=== PATIENT | male | born 1995 | race African-American/Black ===

== ENCOUNTER 2018-05-08 11:02 | Emergency (ER) | payer OTHER ==
--- NOTE | 2018-05-08 11:28 | EDPHYS ---
Physician Documentation [facility] Name: Spike Mena Age: 22 yrs Sex: Male : 1995 Arrival Date: 05/08/2018 Time: 11:04 Bed 16 Private MD: None, None ED Physician Derrick Gabreil HPI: 05/08 11:29 This 22 yrs old Black Male presents to ER via Ambulatory with complaints of Leg Pain. snw 11:29 The patient presents with pain, that is acute. The complaints affect the right knee. snw Context: The problem was sustained at an unknown site, resulted from an unknown cause, the patient can fully bear weight, the patient is able to ambulate, Problem is a result from a previous injury: No. Onset: The symptoms/episode began/occurred suddenly, 3 day(s) ago. Modifying factors: The symptoms are alleviated by remaining still, the symptoms are aggravated by weight bearing. Associated signs and symptoms: The patient has no apparent associated signs or symptoms. Severity of symptoms: At their worst the symptoms were very mild, mild. The patient has not experienced similar symptoms in the past. It is unknown whether or not the patient has recently seen a physician. pt states it feels like his knee is going to give out when bearing weight. Historical: - Allergies: 11:10 No Known Allergies; hb - Home Meds: 11:10 Albuterol Inhl [Active]; hb - PMHx: 11:10 Asthma; hb - PSHx: 11:10 None; hb - Immunization history:: Adult Immunizations up to date. - Social history:: Smoking status: Patient/guardian denies using tobacco. - Ebola Screening: : No symptoms or risks identified at this time. ROS: 11:29 Constitutional: Negative for fever, chills, and weight loss, Eyes: Negative for injury, snw pain, redness, and discharge, ENT: Negative for injury, pain, and discharge, Neck: Negative for injury, pain, and swelling, Cardiovascular: Negative for chest pain, palpitations, and edema, Respiratory: Negative for shortness of breath, cough, wheezing, and pleuritic chest pain, Abdomen/GI: Negative for abdominal pain, nausea, vomiting, diarrhea, and constipation, Back: Negative for injury and pain, : Negative for injury, bleeding, discharge, and swelling, Skin: Negative for injury, rash, and discoloration, Neuro: Negative for headache, weakness, numbness, tingling, and seizure. 11:29 MS/extremity: Positive for pain, of the right knee. Exam: 11:27 Constitutional: This is a well developed, well nourished patient who is awake, alert, snw and in no acute distress. Head/Face: Normocephalic, atraumatic. Eyes: Pupils equal round and reactive to light, extra-ocular motions intact. Lids and lashes normal. Conjunctiva and sclera are non-icteric and not injected. Cornea within normal limits. Periorbital areas with no swelling, redness, or edema. ENT: Nares patent. No nasal discharge, no septal abnormalities noted. Tympanic membranes are normal and external auditory canals are clear. Oropharynx with no redness, swelling, or masses, exudates, or evidence of obstruction, uvula midline. Mucous membranes moist. Neck: Trachea midline, no thyromegaly or masses palpated, and no cervical lymphadenopathy. Supple, full range of motion without nuchal rigidity, or vertebral point tenderness. No Meningismus. Chest/axilla: Normal chest wall appearance and motion. Nontender with no deformity. No lesions are appreciated. Cardiovascular: Regular rate and rhythm with a normal S1 and S2. No gallops, murmurs, or rubs. Normal PMI, no JVD. No pulse deficits. Respiratory: Lungs have equal breath sounds bilaterally, clear to auscultation and percussion. No rales, rhonchi or wheezes noted. No increased work of breathing, no retractions or nasal flaring. Abdomen/GI: Soft, non-tender, with normal bowel sounds. No distension or tympany. No guarding or rebound. No evidence of tenderness throughout. Back: No spinal tenderness. No costovertebral tenderness. Full range of motion. Skin: Warm, dry with normal turgor. Normal color with no rashes, no lesions, and no evidence of cellulitis. Neuro: Awake and alert, GCS 15, oriented to person, place, time, and situation. Cranial nerves II-XII grossly intact. Motor strength 5/5 in all extremities. Sensory grossly intact. Cerebellar exam normal. Normal gait. Psych: Awake, alert, with orientation to person, place and time. Behavior, mood, and affect are within normal limits. 11:27 Musculoskeletal/extremity: Extremities: grossly normal except: noted in the right knee: pain. Vital Signs: 11:10 BP 128 / 74; Pulse 90; Resp 16; Temp 99; Pulse Ox 98% on R/A; Weight 82.55 kg; Height 5 hb ft. 11 in. (180.34 cm); Pain 6/10; 11:10 Body Mass Index 25.38 (82.55 kg, 180.34 cm) hb MDM: 11:13 Patient medically screened. snw 11:29 Data reviewed: vital signs, nurses notes. Data interpreted: Pulse oximetry: on room air snw is 98 %. Interpretation: normal. Counseling: I had a detailed discussion with the patient and/or guardian regarding: the historical points, exam findings, and any diagnostic results supporting the discharge/admit diagnosis, the need for outpatient follow up, to return to the emergency department if symptoms worsen or persist or if there are any questions or concerns that arise at home. Special discussion: Based on the history and exam findings, there is no indication for further emergent testing or inpatient evaluation. I discussed with the patient/guardian the need to see the orthopedic surgeon for further evaluation of the symptoms. I discussed with the patient/guardian the need to see the primary care provider for further evaluation of the symptoms. Administered Medications: No medications were administered Disposition: 15:29 Co-signature as Attending Physician, Derrick Gabriel MD I agree with the assessment and maynor plan of care. Disposition: 05/08/18 11:28 Discharged to Home. Impression: Pain in right knee, Asthma. - Condition is Stable. - Discharge Instructions: Knee Pain, Knee - Meniscus Injury, Arthroscopy, Form - Asthma Action Plan, Adult, Asthma Attack Prevention, Adult. - Prescriptions for Diclofenac Sodium 75 mg Oral Tablet Sustained Release - take 1 tablet by ORAL route 2 times per day; 30 tablet. Albuterol Sulfate 90 mcg/actuation - inhale 1-2 puff by INHALATION route every 4-6 hours; 1 Inhaler. - Medication Reconciliation Form, Thank You Letter, Antibiotic Education, Prescription Opioid Use, Work release form form. - Follow up: Private Physician; When: 2 - 3 days; Reason: Recheck today's complaints, Continuance of care, Re-evaluation by your physician. Follow up: Emergency Department; When: As needed; Reason: Worsening of condition. Signatures: Derrick Gabriel MD MD cha Therrien, Shelly, PLUG SHAPER HAND-C PLUG SHAPER HAND-Csnw Bindu Lima, [place] RN ss Vika Lebron RN RN Corrections: (The following items were deleted from the chart) 11:44 11:28 05/08/2018 11:28 Discharged to Home. Impression: Pain in right knee; Asthma. ss Condition is Stable. Discharge Instructions: Knee Pain, Knee - Meniscus Injury, Arthroscopy, Form - Asthma Action Plan, Adult, Asthma Attack Prevention, Adult. Prescriptions for Diclofenac Sodium 75 mg Oral Tablet Sustained Release - take 1 tablet by ORAL route 2 times per day; 30 tablet, Albuterol Sulfate 90 mcg/actuation - inhale 1-2 puff by INHALATION route every 4-6 hours; 1 Inhaler. and Forms are Medication Reconciliation Form, Thank You Letter, Antibiotic Education, Prescription Opioid Use. Follow up: Private Physician; When: 2 - 3 days; Reason: Recheck today's complaints, Continuance of care, Re-evaluation by your physician. Follow up: Emergency Department; When: As needed; Reason: Worsening of condition. snw
--- NOTE | 2018-05-08 11:28 | ER ---
Nurse's Notes [facility] Name: Spike Mena Age: 22 yrs Sex: Male : 1995 Arrival Date: 05/08/2018 Time: 11:04 Bed 16 Private MD: None, None Diagnosis: Pain in right knee;Asthma Presentation: 05/08 11:08 Presenting complaint: Patient states: RIGHT knee pain x 3 days. Denies injury. hb Transition of care: patient was not received from another setting of care. Onset of symptoms was May 05, 2018. Risk Assessment: Do you want to hurt yourself or someone else? Patient reports no desire to harm self or others. Initial Sepsis Screen: Does the patient meet any 2 criteria? No. Patient's initial sepsis screen is negative. Does the patient have a suspected source of infection? No. Patient's initial sepsis screen is negative. Care prior to arrival: None. 11:08 Method Of Arrival: Ambulatory hb 11:08 Acuity: GORGE 4 hb Historical: - Allergies: 11:10 No Known Allergies; hb - Home Meds: 11:10 Albuterol Inhl [Active]; hb - PMHx: 11:10 Asthma; hb - PSHx: 11:10 None; hb - Immunization history:: Adult Immunizations up to date. - Social history:: Smoking status: Patient/guardian denies using tobacco. - Ebola Screening: : No symptoms or risks identified at this time. Vital Signs: 11:10 BP 128 / 74; Pulse 90; Resp 16; Temp 99; Pulse Ox 98% on R/A; Weight 82.55 kg; Height 5 hb ft. 11 in. (180.34 cm); Pain 6/10; 11:10 Body Mass Index 25.38 (82.55 kg, 180.34 cm) hb ED Course: 11:04 Patient arrived in ED. sb2 11:04 None, None is Private Physician. sb2 11:09 Triage completed. hb 11:10 Arm band placed on right wrist. hb 11:13 Kandi Kent FNP-C is PHCP. snw 11:13 Derrick Gabriel MD is Attending Physician. snw 11:18 Antonio Wasserman, [place] is Primary Nurse. mb3 11:43 No provider procedures requiring assistance completed. Patient did not have IV access ss during this emergency room visit. Administered Medications: No medications were administered Outcome: 11:28 Discharge ordered by . janice 11:43 Discharged to home ambulatory, with family. ss :43 Condition: good 11:43 Discharge instructions given to patient, family, Instructed on discharge instructions, follow up and referral plans. medication usage, Demonstrated understanding of instructions, follow-up care, medications, Prescriptions given X 2. 11:44 Patient left the ED. Signatures: Kandi Kent, REPAIRER VENEER SHEET-C REPAIRER VENEER SHEET-Csnw Bindu Lima, RN RN Vika Lebron, RN RN Lydia Weinberg sb2 Antonio Wasserman RN RN mb3
[2018-05-08 11:47] VITALS: BP 128/74; TEMP 99; O2SAT 98
== END 2018-05-08 11:44 | disposition home or self-care (01) ==
LOC: ER 11:02
DX: M25.561 Pain in right knee (principal); J45.909 Unspecified asthma, uncomplicated
CPT/HCPCS: 99282

== ENCOUNTER 2019-05-31 18:36 | Emergency (ER) | payer OTHER, SELFPAY ==
[2019-05-31] MEDS ORDERED: ALBUTEROL 2.5 MG/3 ML NEB SOL ONE (19:11)
[2019-05-31] MEDS ORDERED: IPRATROPIUM BROM 0.5MG/2.5ML ONE (19:11)
--- NOTE | 2019-05-31 19:17 | ER ---
Nurse's Notes [facility] Name: Spike Mena Age: 23 yrs Sex: Male : 1995 Arrival Date: 05/31/2019 Time: 18:37 Bed 27 Private MD: Diagnosis: Asthma Presentation: 05/31 18:42 Presenting complaint: Patient states: Every year this time of year I get real bad la1 allergies and my asthma flares up. Transition of care: patient was not received from another setting of care. Onset of symptoms was May 31, 2019. Risk Assessment: Do you want to hurt yourself or someone else? Patient reports no desire to harm self or others. Initial Sepsis Screen: Does the patient meet any 2 criteria? No. Patient's initial sepsis screen is negative. Does the patient have a suspected source of infection? No. Patient's initial sepsis screen is negative. Care prior to arrival: None. 18:42 Method Of Arrival: Ambulatory la1 18:42 Acuity: GORGE 4 la1 Triage Assessment: 19:07 General: Appears in no apparent distress. comfortable, Behavior is calm, cooperative, cc3 appropriate for age. Pain: Denies pain. Historical: - Allergies: 18:43 No Known Allergies; la1 - PMHx: 18:43 Asthma; la1 - Immunization history:: Adult Immunizations up to date. - Social history:: Smoking status: Patient uses tobacco products, smokes one-half pack cigarettes per day. - Ebola Screening: : No symptoms or risks identified at this time. Screenin:07 Abuse screen: Denies threats or abuse. Denies injuries from another. Nutritional cc3 screening: No deficits noted. Tuberculosis screening: No symptoms or risk factors identified. Fall Risk Ambulatory Aid- None/Bed Rest/Nurse Assist (0 pts). Gait- Normal/Bed Rest/Wheelchair (0 pts) Mental Status- Oriented to own ability (0 pts). Assessment: 19:07 General: Appears in no apparent distress. comfortable, Behavior is calm, cooperative, cc3 appropriate for age. Pain: Denies pain. Neuro: Level of Consciousness is awake, alert, obeys commands, Oriented to person, place, time, situation, Appropriate for age. Cardiovascular: Denies chest pain. Respiratory: Airway is patent Respiratory effort is even, unlabored, Respiratory pattern is regular, symmetrical. GI: Abdomen is flat. : No signs and/or symptoms were reported regarding the genitourinary system. EENT: No signs and/or symptoms were reported regarding the EENT system. Derm: Skin is intact, is healthy with good turgor, Skin is normal, black. Musculoskeletal: Circulation, motion, and sensation intact. Range of motion: intact in all extremities. 19:35 Reassessment: Patient appears in no apparent distress at this time. Patient and/or cc3 family updated on plan of care and expected duration. Pain level reassessed. Patient is alert, oriented x 3, equal unlabored respirations, skin warm/dry/pink. PELTS SKINNER Bhavin discharged the patient home with prescriptions given. No IV cannula in situ. Patient left ER vitally stable and ambulatory with his family. No valuables left in the patient's room. Patient denies pain at this time. Patient states feeling better. Patient states symptoms have improved. Vital Signs: 18:45 Resp 18; Temp 98.2(O); Pulse Ox 99% on R/A; Weight 79.38 kg; Height 5 ft. 11 in. la1 (180.34 cm); 18:46 BP 120 / 72; Pulse 66; la1 18:45 Body Mass Index 24.41 (79.38 kg, 180.34 cm) la1 ED Course: 18:37 Patient arrived in ED. as 18:42 Triage completed. la1 18:45 Arm band placed on right wrist. la1 18:47 Leanna Delcid FNP-C is [facility]. kb 18:47 Derrick Gabriel MD is Attending Physician. kb 19:07 Zaida Sprague is Primary Nurse. cc3 19:07 Patient has correct armband on for positive identification. Bed in low position. Call cc3 light in reach. Side rails up X 1. Pulse ox on. NIBP on. 19:35 No provider procedures requiring assistance completed. Patient did not have IV access cc3 during this emergency room visit. Administered Medications: 19:15 Drug: DuoNeb (3:1) (2.5 mg - 0.5 mg) 3 ml Route: Nebulizer; cc3 19:35 Follow up: Response: No adverse reaction; Marked relief of symptoms cc3 Outcome: 19:16 Discharge ordered by . kb 19:35 Discharged to home ambulatory, with family. cc3 19:35 Condition: stable 19:35 Discharge instructions given to patient, Instructed on discharge instructions, follow up and referral plans. medication usage, Demonstrated understanding of instructions, follow-up care, medications, Prescriptions given X 2. 19:37 Patient left the ED. cc3 Signatures: Leanna Delcid, DIRECTOR EMERGENCY SERVICES-C DIRECTOR EMERGENCY SERVICES-Codie Mazariegos Lee RN RN la1 Zaida Sprague cc3
--- NOTE | 2019-05-31 19:17 | EDPHYS ---
Physician Documentation [facility] Name: Spike Mena Age: 23 yrs Sex: Male : 1995 Arrival Date: 05/31/2019 Time: 18:37 Bed 27 Private MD: ED Physician Derrick Gabriel HPI: 05/31 19:13 This 23 yrs old Black Male presents to ER via Ambulatory with complaints of Asthma kb Exacerbation. 19:13 The patient presents to the emergency department with wheezing, Current therapy: kb albuterol nebs. Onset: The symptoms/episode began/occurred 3 day(s) ago. Modifying factors: The symptoms are alleviated by nothing, the symptoms are aggravated by nothing. Associated signs and symptoms: The patient has no apparent associated signs or symptoms. Severity of symptoms: At their worst the symptoms were moderate in the emergency department the symptoms have improved. The patient has experienced similar episodes in the past. The patient has not recently seen a physician. Pt reports he normally has asthma exacerbations at this time of year and is out of his neb treatment. Historical: - Allergies: 18:43 No Known Allergies; la1 - PMHx: 18:43 Asthma; la1 - Immunization history:: Adult Immunizations up to date. - Social history:: Smoking status: Patient uses tobacco products, smokes one-half pack cigarettes per day. - Ebola Screening: : No symptoms or risks identified at this time. ROS: 19:09 Constitutional: Negative for fever, chills, and weight loss, ENT: Negative for injury, kb pain, and discharge, Neck: Negative for injury, pain, and swelling, Cardiovascular: Negative for chest pain, palpitations, and edema, Abdomen/GI: Negative for abdominal pain, nausea, vomiting, diarrhea, and constipation, Back: Negative for injury and pain, : Negative for injury, bleeding, discharge, and swelling, MS/Extremity: Negative for injury and deformity, Skin: Negative for injury, rash, and discoloration, Neuro: Negative for headache, weakness, numbness, tingling, and seizure. 19:09 Respiratory: Positive for cough, shortness of breath, wheezing. Exam: 19:09 Constitutional: This is a well developed, well nourished patient who is awake, alert, kb and in no acute distress. Head/Face: Normocephalic, atraumatic. ENT: Nares patent. No nasal discharge, no septal abnormalities noted. Tympanic membranes are normal and external auditory canals are clear. Oropharynx with no redness, swelling, or masses, exudates, or evidence of obstruction, uvula midline. Mucous membranes moist. Neck: Trachea midline, no thyromegaly or masses palpated, and no cervical lymphadenopathy. Supple, full range of motion without nuchal rigidity, or vertebral point tenderness. No Meningismus. Chest/axilla: Normal chest wall appearance and motion. Nontender with no deformity. No lesions are appreciated. Cardiovascular: Regular rate and rhythm with a normal S1 and S2. No gallops, murmurs, or rubs. Normal PMI, no JVD. No pulse deficits. Respiratory: Lungs have equal breath sounds bilaterally, clear to auscultation and percussion. No rales, rhonchi or wheezes noted. No increased work of breathing, no retractions or nasal flaring. Abdomen/GI: Soft, non-tender, with normal bowel sounds. No distension or tympany. No guarding or rebound. No evidence of tenderness throughout. Back: No spinal tenderness. No costovertebral tenderness. Full range of motion. Skin: Warm, dry with normal turgor. Normal color with no rashes, no lesions, and no evidence of cellulitis. MS/ Extremity: Pulses equal, no cyanosis. Neurovascular intact. Full, normal range of motion. Neuro: Awake and alert, GCS 15, oriented to person, place, time, and situation. Cranial nerves II-XII grossly intact. Motor strength 5/5 in all extremities. Sensory grossly intact. Cerebellar exam normal. Normal gait. Vital Signs: 18:45 Resp 18; Temp 98.2(O); Pulse Ox 99% on R/A; Weight 79.38 kg; Height 5 ft. 11 in. la1 (180.34 cm); 18:46 BP 120 / 72; Pulse 66; la1 18:45 Body Mass Index 24.41 (79.38 kg, 180.34 cm) la1 MDM: 18:47 Patient medically screened. kb 19:13 Data reviewed: vital signs, nurses notes. Data interpreted: Pulse oximetry: on room air kb is 99 %. Interpretation: normal. 19:16 Counseling: I had a detailed discussion with the patient and/or guardian regarding: the kb historical points, exam findings, and any diagnostic results supporting the discharge/admit diagnosis, the need for outpatient follow up, a family practitioner, to return to the emergency department if symptoms worsen or persist or if there are any questions or concerns that arise at home. Administered Medications: 19:15 Drug: DuoNeb (3:1) (2.5 mg - 0.5 mg) 3 ml Route: Nebulizer; cc3 19:35 Follow up: Response: No adverse reaction; Marked relief of symptoms cc3 Disposition: 06/01 08:23 Co-signature as Attending Physician, Derrick Gabriel MD I agree with the assessment and maynor plan of care. Disposition: 05/31/19 19:16 Discharged to Home. Impression: Asthma. - Condition is Stable. - Discharge Instructions: Asthma, Adult, [id number]. - Prescriptions for Albuterol Sulfate 2.5 mg /3 mL (0.083 %) Inhalation Solution for Nebulization - inhale 1 unit by NEBULIZATION route every 8 hours As needed; 1 box. Albuterol Sulfate 90 mcg/actuation - inhale 1-2 puff by INHALATION route every 4-6 hours; 1 Inhaler. - Medication Reconciliation Form, Thank You Letter, Antibiotic Education, Prescription Opioid Use form. - Follow up: Emergency Department; When: As needed; Reason: Worsening of condition. Follow up: Private Physician; When: 2 - 3 days; Reason: Recheck today's complaints, Continuance of care, Re-evaluation by your physician. Signatures: Leanna Delcid, INSULATION MANAGER-C INSULATION MANAGER-Ckb Derrick Gabriel MD MD cha Attema, Lee, RN RN laZaida Garcia cc3 Corrections: (The following items were deleted from the chart) 05/31 19:37 19:16 05/31/2019 19:16 Discharged to Home. Impression: Asthma. Condition is Stable. cc3 Forms are Medication Reconciliation Form, Thank You Letter, Antibiotic Education, Prescription Opioid Use. Follow up: Emergency Department; When: As needed; Reason: Worsening of condition. Follow up: Private Physician; When: 2 - 3 days; Reason: Recheck today's complaints, Continuance of care, Re-evaluation by your physician. kb
[2019-05-31 19:45] VITALS: BP 120/72
[2019-05-31 19:47] VITALS: TEMP 98.2; O2SAT 99
== END 2019-05-31 19:37 | disposition home or self-care (01) ==
LOC: ER 18:36
DX: J45.901 Unspecified asthma with (acute) exacerbation (principal); F17.210 Nicotine dependence, cigarettes, uncomplicated
CPT/HCPCS: 94640; 99284

== ENCOUNTER 2020-04-19 14:13 | Emergency (ER) | payer SELFPAY ==
--- NOTE | 2020-04-19 15:06 | ER ---
Nurse's Notes [facility] Name: Spike Mena Age: 24 yrs Sex: Male : 1995 Arrival Date: 04/19/2020 Time: 14:16 Bed 14 Private MD: Diagnosis: Encounter for issue of repeat prescription-albuterol inhaler Presentation: 04/19 14:58 Chief complaint: Patient states: I ran out of my inhaler and neb treatments. I am not dm5 having any symptoms at this time. I just need my meds to make sure I don't have an attack. I sometimes feel like I have an attack at night while I am sleep. Coronavirus screen: Proceed with normal triage. Patient denies a cough. Patient denies shortness of breath or difficulty breathing. Patient denies measured and/or subjective temperature greater than 100.4F prior to today's visit. Patient denies travel on a cruise ship or to a country the [facility] currently lists as an affected area. Patient denies contact with known and/or suspected case of COVID-19. Ebola Screen: Patient negative for fever greater than or equal to 101.5 degrees Fahrenheit, and additional compatible Ebola Virus Disease symptoms Patient denies exposure to infectious person. Patient denies travel to an Ebola-affected area in the 21 days before illness onset. No symptoms or risks identified at this time. Risk Assessment: Do you want to hurt yourself or someone else? Patient reports no desire to harm self or others. Onset of symptoms is unknown. 14:58 Method Of Arrival: Ambulatory dm5 14:58 Acuity: GORGE 5 dm5 Historical: - Allergies: 15:01 No Known Allergies; dm5 - Home Meds: 15:01 Albuterol Inhl [Active]; dm5 - PMHx: 15:01 Asthma; Seasonal allergies; dm5 - PSHx: 15:01 None; dm5 Vital Signs: 15:02 BP 111 / 82 LA (auto/); Pulse 71; Resp 18; Temp 98.5(O); Pulse Ox 100% on R/A; Pain jp3 0/10; ED Course: 14:16 Patient arrived in ED. mr 14:59 Triage completed. dm5 15:00 Leanna Delcid FNP-C is PHCP. kb 15:00 Binh Worthington MD is Attending Physician. kb 15:02 Patient has correct armband on for positive identification. Bed in low position. Call jp3 light in reach. Verbal reassurance given. 15:03 Patient maintains SpO2 saturation greater than 95% on room air. jp3 15:13 Ria Ayon, RN is Primary Nurse. dm5 Administered Medications: No medications were administered Outcome: 15:05 Discharge ordered by . kb 15:13 Patient left the ED. dm5 Signatures: Leanna Delcid, RAF-Azar CARBONE-Ria Gary, RN RN dm5 Anayeli Fraser mr Anuel Agusto jp3
--- NOTE | 2020-04-19 15:06 | EDPHYS ---
Physician Documentation [facility] Name: Spike Mena Age: 24 yrs Sex: Male : 1995 Arrival Date: 04/19/2020 Time: 14:16 Bed 14 Private MD: ED Physician Binh Worthington HPI: 04/19 15:04 This 24 yrs old Black Male presents to ER via Ambulatory with complaints of Medication kb Refill. 15:04 The patient presents to the emergency department requesting refill(s) for: albuterol kb inhaler. The patient chronically suffers from asthma. The patient has experienced similar episodes in the past. The patient has not recently seen a physician. Pt reports he has been out of his inhaler for a few weeks and just wanted to get a new one for when he needs it. Denies any symptoms at this time. Historical: - Allergies: 15:01 No Known Allergies; dm5 - Home Meds: 15:01 Albuterol Inhl [Active]; dm5 - PMHx: 15:01 Asthma; Seasonal allergies; dm5 - PSHx: 15:01 None; dm5 ROS: 15:04 Constitutional: Negative for fever, chills, and weight loss, ENT: Negative for injury, kb pain, and discharge, Neck: Negative for injury, pain, and swelling, Cardiovascular: Negative for chest pain, palpitations, and edema, Respiratory: Negative for shortness of breath, cough, wheezing, and pleuritic chest pain, Abdomen/GI: Negative for abdominal pain, nausea, vomiting, diarrhea, and constipation, MS/Extremity: Negative for injury and deformity, Skin: Negative for injury, rash, and discoloration, Neuro: Negative for headache, weakness, numbness, tingling, and seizure. Exam: 15:04 Constitutional: This is a well developed, well nourished patient who is awake, alert, kb and in no acute distress. Head/Face: Normocephalic, atraumatic. Chest/axilla: Normal chest wall appearance and motion. Nontender with no deformity. No lesions are appreciated. Cardiovascular: Regular rate and rhythm with a normal S1 and S2. No gallops, murmurs, or rubs. Normal PMI, no JVD. No pulse deficits. Respiratory: Lungs have equal breath sounds bilaterally, clear to auscultation and percussion. No rales, rhonchi or wheezes noted. No increased work of breathing, no retractions or nasal flaring. Abdomen/GI: Soft, non-tender, with normal bowel sounds. No distension or tympany. No guarding or rebound. No evidence of tenderness throughout. Skin: Warm, dry with normal turgor. Normal color with no rashes, no lesions, and no evidence of cellulitis. MS/ Extremity: Pulses equal, no cyanosis. Neurovascular intact. Full, normal range of motion. Neuro: Awake and alert, GCS 15, oriented to person, place, time, and situation. Cranial nerves II-XII grossly intact. Motor strength 5/5 in all extremities. Sensory grossly intact. Cerebellar exam normal. Normal gait. Vital Signs: 15:02 BP 111 / 82 LA (auto/); Pulse 71; Resp 18; Temp 98.5(O); Pulse Ox 100% on R/A; Pain jp3 0/10; MDM: 15:01 Patient medically screened. kb 15:04 Data reviewed: vital signs, nurses notes. Data interpreted: Pulse oximetry: on room air kb is 100 %. Interpretation: normal. Counseling: I had a detailed discussion with the patient and/or guardian regarding: the historical points, exam findings, and any diagnostic results supporting the discharge/admit diagnosis, the need for outpatient follow up, a family practitioner, to return to the emergency department if symptoms worsen or persist or if there are any questions or concerns that arise at home. Administered Medications: No medications were administered Disposition: 18:33 Co-signature as Attending Physician, Binh Worthington MD. ma2 Disposition: 04/19/20 15:05 Discharged to Home. Impression: Encounter for issue of repeat prescription - albuterol inhaler. - Condition is Stable. - Discharge Instructions: Medicine Refill at the Emergency Department. - Prescriptions for Albuterol Sulfate 90 mcg/actuation - inhale 1-2 puff by INHALATION route every 4-6 hours; 1 Inhaler. Albuterol Sulfate 2.5 mg /3 mL (0.083 %) Inhalation Solution for Nebulization - inhale 1 unit by NEBULIZATION route every 8 hours As needed; 1 box. - Medication Reconciliation Form, Thank You Letter, Antibiotic Education, Prescription Opioid Use form. - Follow up: Emergency Department; When: As needed; Reason: Worsening of condition. Follow up: Private Physician; When: 2 - 3 days; Reason: Recheck today's complaints, Continuance of care, Re-evaluation by your physician. Signatures: Leanna Delcid FNP-C FNP-Ckb Markwardt, Deana, RN RN dm5 Binh Worthington MD MD ma2 Corrections: (The following items were deleted from the chart) 15:13 15:05 04/19/2020 15:05 Discharged to Home. Impression: Encounter for issue of repeat dm5 prescription - albuterol inhaler. Condition is Stable. Forms are Medication Reconciliation Form, Thank You Letter, Antibiotic Education, Prescription Opioid Use. Follow up: Emergency Department; When: As needed; Reason: Worsening of condition. Follow up: Private Physician; When: 2 - 3 days; Reason: Recheck today's complaints, Continuance of care, Re-evaluation by your physician. kb
[2020-04-19 15:17] VITALS: BP 111/82; TEMP 98.5; O2SAT 100
== END 2020-04-19 15:13 | disposition home or self-care (01) ==
LOC: ER 14:13
DX: Z76.0 Encounter for issue of repeat prescription (principal)
CPT/HCPCS: 99283

== ENCOUNTER 2020-07-25 09:57 | Emergency (ER) | payer SELFPAY ==
--- NOTE | 2020-07-25 10:40 | ER ---
Nurse's Notes [facility] Name: Spike Mena Age: 24 yrs Sex: Male : 1995 Arrival Date: 07/25/2020 Time: 09:59 Bed 7 Private MD: Diagnosis: Wheezing Presentation: 07/25 10:19 Chief complaint: Patient states: Needs albuterol refill, out for 2 days. Also RX for ll1 albuterol nebulizer for his machine at home. Coronavirus screen: Client denies travel out of the [place] in the last 14 days. At this time, the client does not indicate any symptoms associated with coronavirus-19. Ebola Screen: Patient denies travel to an Ebola-affected area in the 21 days before illness onset. Initial Sepsis Screen: Does the patient meet any 2 criteria? No. Patient's initial sepsis screen is negative. Does the patient have a suspected source of infection? No. Patient's initial sepsis screen is negative. Risk Assessment: Do you want to hurt yourself or someone else? Patient reports no desire to harm self or others. Onset of symptoms was July 23, 2020. 10:19 Method Of Arrival: Ambulatory ll1 10:19 Acuity: GORGE 5 ll1 Historical: - Allergies: 10:22 No Known Allergies; ll1 - PMHx: 10:22 seasonal allergies; Asthma; ll1 - PSHx: 10:22 None; ll1 - Immunization history:: Flu vaccine is not up to date. - Social history:: Smoking status: Patient denies any tobacco usage or history of. Screenin:46 Abuse screen: Denies threats or abuse. Nutritional screening: No deficits noted. em Tuberculosis screening: No symptoms or risk factors identified. Fall Risk None identified. Assessment: 10:45 General: Appears in no apparent distress. comfortable, Behavior is calm, cooperative, em appropriate for age, Denies fever. Pain: Denies pain. Neuro: Level of Consciousness is awake, alert, obeys commands, Oriented to person, place, time, situation, Appropriate for age. Cardiovascular: Capillary refill < 3 seconds Patient's skin is warm and dry. Respiratory: Airway is patent Respiratory effort is even, unlabored, Respiratory pattern is regular, symmetrical. GI: Abdomen is flat. Derm: Skin is intact, is healthy with good turgor, Skin is pink, warm \T\ dry. Musculoskeletal: Capillary refill < 3 seconds, Range of motion: intact in all extremities. Vital Signs: 10:19 BP 116 / 79; Pulse 70; Resp 16; Temp 97.9; Pulse Ox 100% ; Weight 76.2 kg; Height 5 ft. ll1 11 in. (180.34 cm); Pain 0/10; 10:19 Body Mass Index 23.43 (76.20 kg, 180.34 cm) ll1 ED Course: 09:59 Patient arrived in ED. mr 10:21 Triage completed. ll1 10:22 Arm band placed on Patient placed in an exam room, on a stretcher. ll1 10:23 Ferny Roach, RN is Primary Nurse. em 10:23 Jesus Smith PA is PHCP. [facility] 10:23 Derrick Gabriel MD is Attending Physician. [facility] 10:46 Patient has correct armband on for positive identification. em 10:46 No provider procedures requiring assistance completed. Patient did not have IV access em during this emergency room visit. Administered Medications: No medications were administered Outcome: 10:39 Discharge ordered by MD. [facility] 10:50 Discharged to home ambulatory. em 10:50 Condition: good 10:50 Discharge instructions given to patient, Instructed on discharge instructions, follow up and referral plans. medication usage, Demonstrated understanding of instructions, follow-up care, medications, Prescriptions given X 1. 10:50 Patient left the ED. em Signatures: Jesus Smith PA PA jmm Anayeli Fraser mr Ferny Roach, [place] GOFF em Gagan Chilel RN RN [facility]
--- NOTE | 2020-07-25 10:40 | EDPHYS ---
Physician Documentation [facility] Name: Spike Mena Age: 24 yrs Sex: Male : 1995 Arrival Date: 07/25/2020 Time: 09:59 Bed 7 Private MD: ED Physician Derrick Gabriel HPI: 07/25 10:24 This 24 yrs old Black Male presents to ER via Ambulatory with complaints of RX Refill, jmm Asthma Exacerbation. 10:24 The patient presents to the emergency department with wheezing, Current therapy: jmm albuterol inhaler. Onset: The symptoms/episode began/occurred gradually, 2 day(s) ago. Modifying factors: The symptoms are alleviated by inhaler, the symptoms are aggravated by nothing. Associated signs and symptoms: Pertinent negatives: chest pain, fever. The patient has experienced similar episodes in the past. Historical: - Allergies: 10:22 No Known Allergies; ll1 - PMHx: 10:22 seasonal allergies; Asthma; ll1 - PSHx: 10:22 None; ll1 - Immunization history:: Flu vaccine is not up to date. - Social history:: Smoking status: Patient denies any tobacco usage or history of. ROS: 10:24 Constitutional: Negative for fever, chills, and weight loss, Cardiovascular: Negative jmm for chest pain, palpitations, and edema. 10:24 Respiratory: Positive for wheezing. 10:24 All other systems are negative. Exam: 10:24 Constitutional: This is a well developed, well nourished patient who is awake, alert, jmm and in no acute distress. Head/Face: atraumatic. Eyes: EOMI, no conjunctival erythema appreciated ENT: Moist Mucus Membranes Neck: Trachea midline, Supple Chest/axilla: Normal chest wall appearance and motion. Cardiovascular: Regular rate and rhythm. No edema appreciated Respiratory: Normal respirations, no respiratory distress appreciated Abdomen/GI: Non distended, soft Back: Normal ROM Skin: General appearance color normal MS/ Extremity: Moves all extremities, no obvious deformities appreciated, no edema noted to the lower extremities Neuro: Awake and alert, normal gait Psych: Behavior is normal, Mood is normal, Patient is cooperative and pleasant Vital Signs: 10:19 BP 116 / 79; Pulse 70; Resp 16; Temp 97.9; Pulse Ox 100% ; Weight 76.2 kg; Height 5 ft. ll1 11 in. (180.34 cm); Pain 0/10; 10:19 Body Mass Index 23.43 (76.20 kg, 180.34 cm) ll1 MDM: 10:24 Patient medically screened. [facility] 10:38 Data reviewed: vital signs, nurses notes. Counseling: I had a detailed discussion with jyoti the patient and/or guardian regarding: the historical points, exam findings, and any diagnostic results supporting the discharge/admit diagnosis, the need for outpatient follow up, to return to the emergency department if symptoms worsen or persist or if there are any questions or concerns that arise at home. ED course: Patient is alert and non toxic in appearance in the ED. No signs of resp distress in the ED. Patient is otherwise given return precautions. patient understood and agrees with the plan of care. . Administered Medications: No medications were administered Disposition: 07/25/20 10:39 Discharged to Home. Impression: Wheezing. - Condition is Stable. - Discharge Instructions: How to Use an Inhaler, Metered Dose Inhaler with Spacer. - Prescriptions for Albuterol Sulfate 90 mcg/actuation - inhale 1-2 puff by INHALATION route every 4-6 hours; 1 Inhaler. - Medication Reconciliation Form, Thank You Letter, Antibiotic Education, Prescription Opioid Use form. - Follow up: Private Physician; When: As needed. Addendum: 07/26/2020 18:03 Co-signature as Attending Physician, Derrick Gabriel MD I agree with the assessment and c perez plan of care. Signatures: Derrick Gabriel MD MD cha Mickail, Joel, PA PA jmm Munoz, Edgar, [place] RN em Gagan Chilel RN RN ll1 Corrections: (The following items were deleted from the chart) 07/25 10:50 10:39 07/25/2020 10:39 Discharged to Home. Impression: Wheezing. Condition is Stable. em Forms are Medication Reconciliation Form, Thank You Letter, Antibiotic Education, Prescription Opioid Use. Follow up: Private Physician; When: As needed. jyoti
[2020-07-25 11:24] VITALS: BP 116/79; TEMP 97.9; O2SAT 100
== END 2020-07-25 10:50 | disposition home or self-care (01) ==
LOC: ER 09:57
DX: R06.2 Wheezing (principal); Z76.0 Encounter for issue of repeat prescription
CPT/HCPCS: 99282

== ENCOUNTER 2020-10-27 09:04 | Emergency (ER) | payer SELFPAY ==
--- NOTE | 2020-10-27 09:22 | ER ---
Nurse's Notes [facility] Name: Spike Mena Age: 25 yrs Sex: Male : 1995 Arrival Date: 10/27/2020 Time: 09:07 Bed Waiting Private MD: Diagnosis: Encounter for issue of repeat prescription Presentation: 10/27 09:18 Chief complaint: Patient states: "I need a prescription for an albuterol inhaler." Pt ss has no complaints at this time. Coronavirus screen: Client denies travel out of the [place] in the last 14 days. Ebola Screen: Patient denies exposure to infectious person. Patient denies travel to an Ebola-affected area in the 21 days before illness onset. Initial Sepsis Screen: Does the patient meet any 2 criteria? No. Patient's initial sepsis screen is negative. Does the patient have a suspected source of infection? No. Patient's initial sepsis screen is negative. Risk Assessment: Do you want to hurt yourself or someone else? Patient reports no desire to harm self or others. Onset of symptoms is unknown. 09:18 Method Of Arrival: Ambulatory ss 09:18 Acuity: GORGE 5 ss Historical: - Allergies: 09:20 No Known Allergies; ss - Home Meds: 09:20 Albuterol Inhl [Active]; ss - PMHx: 09:20 Asthma; seasonal allergies; ss - PSHx: 09:20 None; ss - Immunization history:: Adult Immunizations unknown. - Social history:: Smoking status: Patient denies any tobacco usage or history of. Patient uses street drugs, marijuana. Screenin:21 Abuse screen: Denies threats or abuse. Denies injuries from another. Nutritional ss screening: No deficits noted. Tuberculosis screening: Never had TB. Fall Risk None identified. Assessment: 09:21 General: Appears in no apparent distress. comfortable, Behavior is calm, cooperative. ss Pain: Denies pain. Neuro: Level of Consciousness is awake, alert, obeys commands, Oriented to person, place, time, situation. Cardiovascular: Capillary refill < 3 seconds Rhythm is regular. Respiratory: Airway is patent Respiratory effort is even, unlabored, Respiratory pattern is regular, symmetrical, Breath sounds are clear bilaterally. Respiratory: Denies cough, shortness of breath pain with respiration, pain with cough, pain with movement. GI: No signs and/or symptoms were reported involving the gastrointestinal system. EENT: Nares are clear Oral mucosa is moist. Derm: Skin is intact, is healthy with good turgor, Skin is dry, Skin is pink, warm \\T\\ dry. normal. Musculoskeletal: Circulation, motion, and sensation intact. Range of motion: intact in all extremities, Swelling absent. Vital Signs: 09:18 BP 126 / 87; Pulse 70; Resp 16; Temp 98.2(TE); Pulse Ox 99% ; Weight 78.47 kg; Height 5 ss ft. 11 in. (180.34 cm); Pain 0/10; 09:18 Body Mass Index 24.13 (78.47 kg, 180.34 cm) ss ED Course: 09:07 Patient arrived in ED. ds1 09:20 Triage completed. ss 09:20 Arm band placed on right wrist. ss 09:21 Leanna Delcid FNP-C is [facility]. kb 09:21 Juan Manuel Enriquez MD is Attending Physician. kb 09:21 Patient has correct armband on for positive identification. Bed in low position. Call ss light in reach. 09:21 No provider procedures requiring assistance completed. Patient did not have IV access ss during this emergency room visit. Administered Medications: No medications were administered Outcome: 09:21 Discharge ordered by . kb 09:21 Discharged to home ambulatory. ss 09:21 Condition: good 09:21 Discharge instructions given to patient, Instructed on discharge instructions, follow up and referral plans. medication usage, Demonstrated understanding of instructions, follow-up care, medications, Prescriptions given X 1. 09:23 Patient left the ED. ss Signatures: Leanna Delcid FNP-C FNP-Ckb Sanford, Demi ds1 Bindu Lima, [place] RN ss
--- NOTE | 2020-10-27 09:22 | EDPHYS ---
Physician Documentation [facility] Name: Spike Mena Age: 25 yrs Sex: Male : 1995 Arrival Date: 10/27/2020 Time: 09:07 Bed Waiting Private MD: ED Physician Juan Manuel Enriquez HPI: 10/27 09:50 This 25 yrs old Black Male presents to ER via Ambulatory with complaints of Wheezing > kb 1 Year. 09:50 The patient presents to the emergency department requesting refill(s) for: albuterol kb inhaler. The patient chronically suffers from asthma. The patient has not experienced similar symptoms in the past. The patient has not recently seen a physician. Pt reports he is out of his albuterol inhaler and just needs a refill. Denies any shortness of breath, wheezing, coughing, chest pain at this time. Historical: - Allergies: 09:20 No Known Allergies; ss - Home Meds: 09:20 Albuterol Inhl [Active]; ss - PMHx: 09:20 Asthma; seasonal allergies; ss - PSHx: 09:20 None; ss - Immunization history:: Adult Immunizations unknown. - Social history:: Smoking status: Patient denies any tobacco usage or history of. Patient uses street drugs, marijuana. ROS: 09:50 Constitutional: Negative for fever, chills, and weight loss, ENT: Negative for injury, kb pain, and discharge, Cardiovascular: Negative for chest pain, palpitations, and edema, Respiratory: Negative for shortness of breath, cough, wheezing, and pleuritic chest pain, Abdomen/GI: Negative for abdominal pain, nausea, vomiting, diarrhea, and constipation, MS/Extremity: Negative for injury and deformity, Skin: Negative for injury, rash, and discoloration, Neuro: Negative for headache, weakness, numbness, tingling, and seizure. Exam: 09:50 Constitutional: This is a well developed, well nourished patient who is awake, alert, kb and in no acute distress. Head/Face: Normocephalic, atraumatic. Chest/axilla: Normal chest wall appearance and motion. Nontender with no deformity. No lesions are appreciated. Cardiovascular: Regular rate and rhythm with a normal S1 and S2. No gallops, murmurs, or rubs. Normal PMI, no JVD. No pulse deficits. Respiratory: Lungs have equal breath sounds bilaterally, clear to auscultation and percussion. No rales, rhonchi or wheezes noted. No increased work of breathing, no retractions or nasal flaring. Abdomen/GI: Soft, non-tender, with normal bowel sounds. No distension or tympany. No guarding or rebound. No evidence of tenderness throughout. Skin: Warm, dry with normal turgor. Normal color with no rashes, no lesions, and no evidence of cellulitis. MS/ Extremity: Pulses equal, no cyanosis. Neurovascular intact. Full, normal range of motion. Neuro: Awake and alert, GCS 15, oriented to person, place, time, and situation. Cranial nerves II-XII grossly intact. Motor strength 5/5 in all extremities. Sensory grossly intact. Cerebellar exam normal. Normal gait. Vital Signs: 09:18 BP 126 / 87; Pulse 70; Resp 16; Temp 98.2(TE); Pulse Ox 99% ; Weight 78.47 kg; Height 5 ss ft. 11 in. (180.34 cm); Pain 0/10; 09:18 Body Mass Index 24.13 (78.47 kg, 180.34 cm) ss MDM: 09:21 Patient medically screened. kb 09:50 Data reviewed: vital signs, nurses notes. Data interpreted: Pulse oximetry: on room air kb is 99 %. Interpretation: normal. Counseling: I had a detailed discussion with the patient and/or guardian regarding: the historical points, exam findings, and any diagnostic results supporting the discharge/admit diagnosis, the need for outpatient follow up, a family practitioner, to return to the emergency department if symptoms worsen or persist or if there are any questions or concerns that arise at home. Administered Medications: No medications were administered Disposition: 13:33 Co-signature as Attending Physician, Juan Manuel Enriquez MD I agree with the assessment and kdr plan of care. Disposition: 10/27/20 09:21 Discharged to Home. Impression: Encounter for issue of repeat prescription. - Condition is Stable. - Discharge Instructions: Medicine Refill at the Emergency Department. - Prescriptions for Albuterol Sulfate 90 mcg/actuation - inhale 1-2 puff by INHALATION route every 4-6 hours; 1 Inhaler. - Medication Reconciliation Form, Thank You Letter, Antibiotic Education, Prescription Opioid Use form. - Follow up: Emergency Department; When: As needed; Reason: Worsening of condition. Follow up: Private Physician; When: 2 - 3 days; Reason: Recheck today's complaints, Continuance of care, Re-evaluation by your physician. Signatures: Leanna Delcid, RAF-C [employer] GUARD INSPECTOR-Juan Manuel Kim MD MD kdr Smirch, Shelby, RN RN ss Corrections: (The following items were deleted from the chart) 09:23 09:21 10/27/2020 09:21 Discharged to Home. Impression: Encounter for issue of repeat ss prescription. Condition is Stable. Forms are Medication Reconciliation Form, Thank You Letter, Antibiotic Education, Prescription Opioid Use. Follow up: Emergency Department; When: As needed; Reason: Worsening of condition. Follow up: Private Physician; When: 2 - 3 days; Reason: Recheck today's complaints, Continuance of care, Re-evaluation by your physician. kb
[2020-10-27 09:32] VITALS: BP 126/87; TEMP 98.2; O2SAT 99
== END 2020-10-27 09:23 | disposition home or self-care (01) ==
LOC: ER 09:04
DX: Z76.0 Encounter for issue of repeat prescription (principal); J45.909 Unspecified asthma, uncomplicated
CPT/HCPCS: 99282

== ENCOUNTER 2021-08-30 19:37 | Emergency (ER) | payer SELFPAY ==
[2021-08-30] MEDS ORDERED: predniSONE 20 MG TAB ONE (21:11)
[2021-08-30] MEDS ORDERED: ALBUTEROL 2.5 MG/3 ML NEB SOL ONE (21:12)
[2021-08-30] MEDS ORDERED: IPRATROPIUM BROM 0.5MG/2.5ML ONE (21:12)
--- NOTE | 2021-08-30 21:36 | ER ---
Nurse's Notes [facility] Name: Spike Mena Age: 25 yrs Sex: Male : 1995 Arrival Date: 08/30/2021 Time: 19:40 Bed 8 Private MD: Diagnosis: Mild intermittent asthma Presentation: 08/30 19:56 Chief complaint: Patient states: Ran out of albuterol inhaler and has been having vg1 breathing difficulty for a couple of days. States had an asthma attack last night and took a breathing treatment and felt better. Denies NVD. Coronavirus screen: Vaccine status: Patient reports being unvaccinated. Client denies travel out of the [place] in the last 14 days. Ebola Screen: Patient negative for fever greater than or equal to 101.5 degrees Fahrenheit, and additional compatible Ebola Virus Disease symptoms. Initial Sepsis Screen: Does the patient meet any 2 criteria? No. Patient's initial sepsis screen is negative. Does the patient have a suspected source of infection? No. Patient's initial sepsis screen is negative. Risk Assessment: Do you want to hurt yourself or someone else? Patient reports no desire to harm self or others. Onset of symptoms was August 28, 2021. 19:56 Method Of Arrival: Ambulatory vg1 19:56 Acuity: GORGE 3 vg1 Triage Assessment: 19:58 General: Appears in no apparent distress. uncomfortable, Behavior is calm, cooperative. vg1 Pain: Denies pain. Respiratory: Reports shortness of breath on exertion cough that is productive, Onset: The symptoms/episode began/occurred 08/28/21, the patient has moderate shortness of breath. Historical: - Allergies: 19:58 No Known Allergies; vg1 - Home Meds: 19:58 Albuterol Inhl [Active]; vg1 - PMHx: 19:58 Asthma; seasonal allergies; vg1 - PSHx: 19:58 None; vg1 - Immunization history:: Client reports having NOT received the Covid vaccine. - Social history:: Smoking status: Reported history of juuling and/or vaping. - Family history:: not pertinent. Screenin:03 Abuse screen: Denies threats or abuse. Denies injuries from another. Nutritional mr2 screening: No deficits noted. Tuberculosis screening: Risk factors: None. Fall Risk None identified. Assessment: 21:10 Cardiovascular: Rhythm is regular. Respiratory: Airway Respiratory effort is even, mr2 Breath sounds with wheezes bilaterally. Vital Signs: 19:56 BP 123 / 90; Pulse 88; Resp 18; Temp 99.3(TE); Pulse Ox 100% ; Weight 79.38 kg; Height vg1 5 ft. 11 in. (180.34 cm); Pain 0/10; 19:56 Body Mass Index 24.41 (79.38 kg, 180.34 cm) vg1 ED Course: 19:40 Patient arrived in ED. bp1 19:58 Triage completed. vg1 19:58 Arm band placed on. vg1 20:54 Binh Worthington MD is Attending Physician. ma2 21:03 Patient has correct armband on for positive identification. Bed in low position. Call mr2 light in reach. Side rails up X2. Adult w/ patient. 21:03 No provider procedures requiring assistance completed. Patient did not have IV access mr2 during this emergency room visit. 21:06 Suresh Padgett, RN is Primary Nurse. mr2 Administered Medications: 21:21 Drug: Albuterol - atroVENT (ipratropium) (3:1) (2.5 mg - 0.5 mg) 3 ml Route: Nebulizer; mr2 21:21 Drug: predniSONE 40 mg Route: PO; mr2 Outcome: 21:35 Discharge ordered by . ma2 21:43 Discharged to home ambulatory, with family. mr2 21:43 Condition: stable 21:43 Discharge instructions given to patient, Instructed on discharge instructions, follow up and referral plans. 21:45 Patient left the ED. mr2 Signatures: Binh Worthington MD MD pa2 Laila Bo, RN RN vg1 Yaquelin Navarro bp1 Suresh Padgett, [place] RN mr2
--- NOTE | 2021-08-30 21:36 | EDPHYS ---
Physician Documentation [facility] Name: Spike Mena Age: 25 yrs Sex: Male : 1995 Arrival Date: 08/30/2021 Time: 19:40 Bed 8 Private MD: ED Physician Binh Worthington HPI: 08/30 21:25 This 25 yrs old Black Male presents to ER via Ambulatory with complaints of Breathing ma2 Difficulty. 21:25 The patient has shortness of breath at rest. Onset: The symptoms/episode began/occurred ma2 gradually, 2 day(s) ago. Associated signs and symptoms: Pertinent negatives: productive cough, fever, loss of consciousness, numbness in extremities. Severity of symptoms: At their worst the symptoms were moderate in the emergency department the symptoms are unchanged. The patient has experienced similar episodes in the past. Historical: - Allergies: 19:58 No Known Allergies; vg1 - Home Meds: 19:58 Albuterol Inhl [Active]; vg1 - PMHx: 19:58 Asthma; seasonal allergies; vg1 - PSHx: 19:58 None; vg1 - Immunization history:: Client reports having NOT received the Covid vaccine. - Social history:: Smoking status: Reported history of juuling and/or vaping. - Family history:: not pertinent. ROS: 21:25 Constitutional: Negative for fever, chills, and weight loss. ma2 21:25 All other systems are negative. Exam: 21:25 Constitutional: This is a well developed, well nourished patient who is awake, alert, ma2 and in no acute distress. Eyes: Pupils equal round and reactive to light, extra-ocular motions intact. Lids and lashes normal. Conjunctiva and sclera are non-icteric and not injected. Cornea within normal limits. Periorbital areas with no swelling, redness, or edema. ENT: Nares patent. No nasal discharge, no septal abnormalities noted. Tympanic membranes are normal and external auditory canals are clear. Oropharynx with no redness, swelling, or masses, exudates, or evidence of obstruction, uvula midline. Mucous membranes moist. Neck: Trachea midline, no thyromegaly or masses palpated, and no cervical lymphadenopathy. Supple, full range of motion without nuchal rigidity, or vertebral point tenderness. No Meningismus. Chest/axilla: Normal chest wall appearance and motion. Nontender with no deformity. No lesions are appreciated. Cardiovascular: Regular rate and rhythm with a normal S1 and S2. No gallops, murmurs, or rubs. Normal PMI, no JVD. No pulse deficits. Abdomen/GI: Soft, non-tender, with normal bowel sounds. No distension or tympany. No guarding or rebound. No evidence of tenderness throughout. Back: No spinal tenderness. No costovertebral tenderness. Full range of motion. Skin: Warm, dry with normal turgor. Normal color with no rashes, no lesions, and no evidence of cellulitis. MS/ Extremity: Pulses equal, no cyanosis. Neurovascular intact. Full, normal range of motion. Neuro: Awake and alert, GCS 15, oriented to person, place, time, and situation. Cranial nerves II-XII grossly intact. Motor strength 5/5 in all extremities. Sensory grossly intact. Cerebellar exam normal. Normal gait. 21:25 Respiratory: mild respiratory distress is noted, Respirations: no acute changes, Breath sounds: wheezing: expiratory is scattered. Vital Signs: 19:56 BP 123 / 90; Pulse 88; Resp 18; Temp 99.3(TE); Pulse Ox 100% ; Weight 79.38 kg; Height vg1 5 ft. 11 in. (180.34 cm); Pain 0/10; 19:56 Body Mass Index 24.41 (79.38 kg, 180.34 cm) vg1 MDM: 20:54 Patient medically screened. ma2 21:25 Differential diagnosis: Anxiety Reaction asthma, Bronchitis reactive airway disease. ma2 Antibiotic administration: Not indicated. Data reviewed: vital signs, nurses notes, EMS record. Counseling: I had a detailed discussion with the patient and/or guardian regarding: the historical points, exam findings, and any diagnostic results supporting the discharge/admit diagnosis, the presence of at least one elevated blood pressure reading (>120/80) during this emergency department visit, the need for outpatient follow up. Administered Medications: 21:21 Drug: Albuterol - atroVENT (ipratropium) (3:1) (2.5 mg - 0.5 mg) 3 ml Route: Nebulizer; mr2 21:21 Drug: predniSONE 40 mg Route: PO; mr2 Disposition Summary: 08/30/21 21:35 Discharge Ordered Location: Home ma2 Condition: Stable ma2 Diagnosis - Mild intermittent asthma ma2 Followup: ma2 - With: Private Physician - When: Tomorrow - Reason: Recheck today's complaints, Continuance of care Discharge Instructions: - Discharge Summary Sheet ma2 - Asthma Attack ma2 Forms: - Medication Reconciliation Form ma2 - Thank You Letter ma2 - Antibiotic Education ma2 - Prescription Opioid Use ma2 Prescriptions: - albuterol sulfate 90 mcg/actuation Inhalation HFA aerosol inhaler - inhale 1 puff by INHALATION route every 4-6 hours; 5 vial; Refills: 0, Product ma2 Selection Permitted - Medrol (Kevyn) 4 mg Oral Tablets, Dose Pack - take 1 tablet by ORAL route as directed - follow package instructions; 1 ma2 packet; Refills: 0, Product Selection Permitted Signatures: Binh Worthington MD MD ma2 Laila Bo RN RN vg1 Suresh Padgett RN RN mr2
[2021-08-30 22:09] VITALS: BP 123/90; TEMP 99.3; O2SAT 100
== END 2021-08-30 21:45 | disposition home or self-care (01) ==
LOC: ER 19:37
DX: J45.20 Mild intermittent asthma, uncomplicated (principal)
CPT/HCPCS: 94640; 99284; J7512